=== PATIENT | male | born 1960 | race Two or more races ===

== ENCOUNTER 2024-06-08 08:15 | Outpatient (CLI) | payer OTHER ==
[~2024-06-08 08:15] MED LIST: PERCOCET 5/3251 TAB PO; RECTICARE30 GM TP
== END 2024-06-08 08:28 | disposition home or self-care (01) ==
LOC: RAD 08:15
PROVIDERS: ATTEND Physical Medicine & Rehabilitation
DX: M54.59 Other low back pain (principal)